=== PATIENT | female | born 1980 | race American Indian/Alaskan Native ===

== ENCOUNTER 2020-03-12 09:27 | Outpatient (CLI) | payer OTHER ==
--- NOTE | 2020-03-12 12:49 | Ultrasound Report ---
ULTRASOUND BREAST LEFT COMPLETE, 03/12/2020 CLINICAL INFORMATION / INDICATION: ABNORMAL MAMMO. TECHNIQUE: Complete sonographic evaluation of all 4 quadrants and retroareolar region was performed. COMPARISON: Recent mammograms 02/20/2020 and 02/28/2020 FINDINGS: Scattered small cysts and fibrocystic tissue seen scattered throughout the breast. There is a small b enign-appearing oval solid mass at 10:00, 7 cm from the nipple measuring 8 x 3 mm. No definite sonogr aphic correlate for questionable mammographic findings. IMPRESSION: Scattered fibrocystic change with benign-appearing solid mass at 10:00, most likely a fib roadenoma. Recommend 6 month follow-up left mammogram and ultrasound. Follow up recommendation: Short term follow up in 6 months. BI-RADS Category 3: Probably Benign. Followup in 6 months. A normal or "negative" report should not preclude biopsy or follow-up of a clinically suspicious find ing. Signer Name: Mary Ge MD Signed: 03/12/2020 12:44 PM Workstation Name: [id number]
== END 2020-03-12 09:28 | disposition home or self-care (01) ==
LOC: SPVWC 09:27
PROVIDERS: ATTEND Surgery
DX: N60.12 Diffuse cystic mastopathy of left breast (principal); N60.02 Solitary cyst of left breast

== ENCOUNTER 2020-10-09 08:17 | Outpatient (CLI) | payer OTHER | END 2020-10-09 08:18 | disposition home or self-care (01) | LOC: SPVWC 08:17 | DX: N63.22 Unspecified lump in the left breast, upper inner quadrant (principal); R92.8 Other abnormal and inconclusive findings on diagnostic imaging of breast ==

== ENCOUNTER 2021-02-20 08:44 | Outpatient (CLI) | payer OTHER ==
--- NOTE | 2021-02-20 10:55 | Mammography Report ---
DIGITAL SCREENING MAMMOGRAM WITH CAD, 02/20/2021 CLINICAL INFORMATION / INDICATION: Routine screening mammography. SCREENING MAMMO TECHNIQUE: Digital bilateral 2D mammography was obtained in the craniocaudal and mediolateral obliqu e projections. This examination was interpreted with the benefit of Computer-Aided Detection analysis . COMPARISON: 02/20/2020 FINDINGS: Breast Density: The breasts are heterogeneously dense, which may obscure small masses. No dominant mass, suspicious calcifications, or architectural distortion in either breast. IMPRESSION: No mammographic evidence of malignancy. Follow up recommendation: Routine yearly BI-RADS Category 1: Negative. A "normal" or negative report should not discourage follow up or biopsy of a clinically significant f inding. A written summary of these findings will be mailed to the patient. The patient will be entered into a mammography reporting system which will generate a reminder letter for the patient's next appointmen t at the appropriate interval. The [employer] recommends yearly mammograms starting at age 40 and continuing as l maureen as a woman is in good health. Breast MRI is recommended for women with an approximate 20-25% or greater lifetime risk of breast cancer, including women with a strong family history of breast or ova mariam cancer or who have been treated for Hodgkin's disease. Signer Name: Alex Arreola MD Signed: 02/20/2021 10:51 AM Workstation Name: [email or web address]
== END 2021-02-20 08:45 | disposition home or self-care (01) ==
LOC: SPVWC 08:44
PROVIDERS: ATTEND Obstetrics & Gynecology
DX: Z12.31 Encounter for screening mammogram for malignant neoplasm of breast (principal)
CPT/HCPCS: 77067